=== PATIENT | female | born 1965 | race Hispanic/Latino ===

== ENCOUNTER 2017-09-27 08:54 | Outpatient (CLI) | payer BC ==
--- NOTE | 2017-09-27 10:42 | Mammography Report ---
Stereotactic biopsy of the right breast, marker placement, two-view mammogram: The patient presents with outside images demonstrating microcalcification cluster in the superior medial breast. Calcifications were successfully targeted from a medial approach. The breast was cleansed and 1% lidocaine used for local anesthesia. An 8-gauge biopsy needle was utilized to take [id number] sections. Specimen images demonstrate calcifications all within one specimen. A biopsy marker was deployed and confirmed with an image however upon withdrawal of the biopsy device/applicator the marker was also withdrawn. A followup two-view mammogram however does demonstrate that there is a single calcification in its near the site of biopsy and can be used as a localizer if additional removal of tissue is required. Immediately following removal of the device the port site was compressed with no evidence of hemorrhage. The area was bandaged and the patient was discharged following followup instructions. No patient complications encountered.
--- NOTE | 2017-09-27 11:15 | Mammography Report ---
Stereotactic biopsy of the right breast, marker placement, two-view mammogram: The patient presents with outside images demonstrating microcalcification cluster in the superior medial breast. Calcifications were successfully targeted from a medial approach. The breast was cleansed and 1% lidocaine used for local anesthesia. An 8-gauge biopsy needle was utilized to take [id number] sections. Specimen images demonstrate calcifications all within one specimen. A biopsy marker was deployed and confirmed with an image however upon withdrawal of the biopsy device/applicator the marker was also withdrawn. A followup two-view mammogram however does demonstrate that there is a single calcification in its near the site of biopsy and can be used as a localizer if additional removal of tissue is required. Immediately following removal of the device the port site was compressed with no evidence of hemorrhage. The area was bandaged and the patient was discharged following followup instructions. No patient complications encountered.
== END 2017-09-27 08:55 | disposition home or self-care (01) ==
LOC: SPVWC 08:54
PROVIDERS: ATTEND Family Medicine
DX: D05.11 Intraductal carcinoma in situ of right breast (principal); R92.1 Mammographic calcification found on diagnostic imaging of breast
CPT/HCPCS: 19081; 77065; 88305; 88341; 88342; 88361; A4648